=== PATIENT | female | born 1960 | race Caucasian/White ===

== ENCOUNTER 2022-01-25 13:42 | Inpatient (IN) | payer MEDICAID ==
[~2022-01-25] VITALS: Ht 160 cm; Wt 81.7 kg
[2022-01-25] MEDS ORDERED: IBUPROFEN 400MG TABLET PO ONE (17:00)
[2022-01-25] MEDS ORDERED: NITROGLYCERIN 0.4MG TABLET SL SL PRN ×2 (19:00→22:45)
[2022-01-25] MEDS ORDERED: AZITHROMYCIN 500MG/250ML 250 ML IV ONE (19:00)
[2022-01-25] MEDS ORDERED: SODIUM CHLORIDE 0.9% 1000ML BAG (SEPSIS BOLUS) IV ONE (19:00)
[2022-01-25] MEDS ORDERED: CEFTRIAXONE 1 G PREMIX 50 ML IV ONE (19:00)
[2022-01-25] MEDS ORDERED: ASPIRIN 81MG TABLET PO ONE (19:00)
[2022-01-25 19:52] LABS: BASOPHILS % 0.9 % (0.0-2.0); EOSINOPHILS % 3.2 % (0.0-5.0); HEMATOCRIT. 42.9 % (36.0-48.0); HEMOGLOBIN. 14.7 g/dL (12.0-16.0); LYMPHOCYTES % 38.6 % (20.0-50.0); MEAN CORPUSCULAR VOLUME 90.6 fL (81.0-99.0); MEAN PLATELET VOLUME 8.9 fl (7.4-10.4); MONOCYTES % 10.2 % (2.0-8.0); NEUTROPHILS % 47.1 % (40.0-76.0); PLATELET 315 x1000/uL (130-400); RED BLOOD CELL COUNT 4.73 mill/uL (4.2-5.4); RED CELL DISTRIBUTION WIDTH 12.8 % (11.6-14.6)
[2022-01-25 19:54] LABS: CLARITY URINE CLEAR (CLEAR); COLOR URINE YELLOW (YELLOW); KETONES URINE NEGATIVE (NEGATIVE); LEUKOCYTE ESTERASE URINE TRACE (NEGATIVE); NITRITE URINE NEGATIVE (NEGATIVE); OCCULT BLOOD URINE NEGATIVE (NEGATIVE); PROTEIN URINE TRACE (NEGATIVE); SPECIFIC GRAVITY URINE 1.013 (1.005-1.030); UROBILINOGEN URINE 0.2 E.U./dL (0.2-1.0)
[2022-01-25 20:08] LABS: CHLORIDE 100 mEq/L (98-107)
[2022-01-25] MEDS ORDERED: DOCUSATE SODIUM 100MG CAPSULE PO PRN (22:45)
[2022-01-25] MEDS ORDERED: ACETAMINOPHEN 325MG TABLET PO PRN ×2 (22:45)
[2022-01-25] MEDS ORDERED: ONDANSETRON HCL 4MG/2ML INJ IV PRN (22:45)
[2022-01-25] MEDS ORDERED: CLONIDINE 0.1MG TABLET PO PRN (22:45)
[2022-01-25] MEDS ORDERED: KETOROLAC 15MG/ML VIAL IV PRN (22:45)
[2022-01-25] MEDS ORDERED: IPRATROPIUM/ALBUTEROL 0.5-3(2.5)MG/3ML NEB NEB PRN (22:45)
[2022-01-25] MEDS ORDERED: ZOLPIDEM TARTRATE 5MG TABLET PO PRN (22:45)
[2022-01-25] MEDS ORDERED: MAGNESIUM/ALUMINUM HYDROXIDE/SIMETHICONE 30ML UDC PO PRN (22:45)
[2022-01-25 23:30] LABS: *AMPHETAMINES SCREEN URINE NEGATIVE (NEGATIVE); *BARBITURATES SCREEN URINE NEGATIVE (NEGATIVE); *BENZODIAZEPINES SCREEN URINE NEGATIVE (NEGATIVE); *COCAINE SCREEN URINE NEGATIVE (NEGATIVE); CANNABINOID URINE SCREEN NEGATIVE (NEGATIVE); METHADONE URINE SCREEN NEGATIVE (NEGATIVE); OPIATES URINE SCREEN NEGATIVE (NEGATIVE); PHENCYCLIDINE URINE SCREEN NEGATIVE (NEGATIVE)
[2022-01-26] VITALS (7 sets, daily range): BP systolic 100–145; BP diastolic 56–81
[2022-01-26] MEDS: GUAIFENESIN/DM 600MG/30MG ER TAB 12HR PO SCH ×3 (00:09→23:16)
[2022-01-26] MEDS: GUAIFENESIN 200MG/10ML SUGAR FREE UDC PO PRN ×2 (00:14→12:23)
[2022-01-26] MEDS ORDERED: INFLUENZA VACCINE 05/PF 0.5 ML SYRINGE IM ONE (01:15)
[2022-01-26 02:19] LABS: ETHANOL BLOOD < 10 mg/dL
[2022-01-26 02:31] LABS: HDL CHOLESTEROL 38 mg/dL (40-59); LDL CHOLESTEROL 102 mg/dL (5-100)
[2022-01-26 02:37] LABS: T4 FREE 0.98 ng/dL (0.76-1.46)
[2022-01-26 06:54] LABS: BASOPHILS % 1.1 % (0.0-2.0); EOSINOPHILS % 4.4 % (0.0-5.0); HEMATOCRIT. 38.9 % (36.0-48.0); HEMOGLOBIN. 13.6 g/dL (12.0-16.0); LYMPHOCYTES % 39.6 % (20.0-50.0); MEAN CORPUSCULAR HEMOGLOBIN 31.3 pg (28.0-32.0); MEAN CORPUSCULAR VOLUME 89.6 fL (81.0-99.0); MEAN PLATELET VOLUME 8.8 fl (7.4-10.4); MONOCYTES % 12.9 % (2.0-8.0); PLATELET 288 x1000/uL (130-400); RED BLOOD CELL COUNT 4.34 mill/uL (4.2-5.4); RED CELL DISTRIBUTION WIDTH 12.9 % (11.6-14.6)
[2022-01-26] MEDS: ASCORBIC ACID 500 MG TABLET PO SCH ×2 (08:09→21:15)
[2022-01-26] MEDS: ENOXAPARIN 40MG/0.4ML SYR SUBCUT SCH (08:09)
[2022-01-26] MEDS: CHOLECALCIFEROL (D3) 1000 UNIT TABLET PO SCH (08:09)
[2022-01-26] MEDS: ASPIRIN 325MG EC TABLET PO SCH (08:09)
[2022-01-26] MEDS: FAMOTIDINE 20MG TABLET PO SCH ×2 (08:09→21:15)
[2022-01-26] MEDS: ZINC SULFATE 220 MG ( 50 ) CAPSULE PO SCH (08:10)
[2022-01-26 08:29] LABS: CHLORIDE 102 mEq/L (98-107); CREATINE KINASE 106 IU/L (26-192); CREATINE KINASE MB FRACTION 1.1 ng/mL (0.5-3.6); PHOSPHORUS 3.7 mg/dL (2.5-4.9)
[2022-01-26] MEDS ORDERED: CEFTRIAXONE 1 G PREMIX 50 ML IV SCH (09:00)
[2022-01-26] MEDS: CEFTRIAXONE 1,000 MG in DEXTROSE 5% WATER 50 ML IV SCH (21:15)
[2022-01-26] MEDS ORDERED: AZITHROMYCIN 500 MG in DEXT 5% WATER 250 ML IV SCH (22:00)
[2022-01-27] VITALS: BP 129/57
[2022-01-27 04:00] VITALS: BP_SYST 136; BP_SYST 143; BP_DIAS 67; BP_DIAS 77
[2022-01-27 08:00] VITALS: BP 94/59
[2022-01-27] MEDS: GUAIFENESIN/DM 600MG/30MG ER TAB 12HR PO SCH ×2 (10:20→21:13)
[2022-01-27] MEDS: ASCORBIC ACID 500 MG TABLET PO SCH ×2 (10:20→21:11)
[2022-01-27] MEDS: ASPIRIN 325MG EC TABLET PO SCH (10:20)
[2022-01-27] MEDS: FAMOTIDINE 20MG TABLET PO SCH ×2 (10:21→21:11)
[2022-01-27] MEDS: CHOLECALCIFEROL (D3) 1000 UNIT TABLET PO SCH (10:21)
[2022-01-27] MEDS: ZINC SULFATE 220 MG ( 50 ) CAPSULE PO SCH (10:21)
[2022-01-27] MEDS: ENOXAPARIN 40MG/0.4ML SYR SUBCUT SCH (10:22)
[2022-01-27 12:00] VITALS: BP 115/67
[2022-01-27 16:00] VITALS: BP 141/65
[2022-01-27 20:00] VITALS: BP 133/66
[2022-01-27] MEDS ORDERED: AZITHROMYCIN 500 MG in DEXT 5% WATER 250 ML IV SCH (21:00)
[2022-01-27] MEDS: CEFTRIAXONE 1,000 MG in DEXTROSE 5% WATER 50 ML IV SCH (21:07)
[2022-01-28] VITALS: BP 122/77
[2022-01-28 04:00] VITALS: BP 118/78
[2022-01-28 08:00] VITALS: BP 115/66
[2022-01-28] MEDS ORDERED: LEVO750T68 MT (08:16)
[2022-01-28] MEDS: CHOLECALCIFEROL (D3) 1000 UNIT TABLET PO SCH (09:00)
[2022-01-28] MEDS: ENOXAPARIN 40MG/0.4ML SYR SUBCUT SCH (09:00)
[2022-01-28] MEDS: ZINC SULFATE 220 MG ( 50 ) CAPSULE PO SCH (09:00)
[2022-01-28] MEDS: ASCORBIC ACID 500 MG TABLET PO SCH (09:00)
[2022-01-28] MEDS: GUAIFENESIN/DM 600MG/30MG ER TAB 12HR PO SCH (09:00)
[2022-01-28] MEDS: ASPIRIN 325MG EC TABLET PO SCH (09:00)
[2022-01-28] MEDS: FAMOTIDINE 20MG TABLET PO SCH (09:00)
[2022-01-28 11:02] VITALS: BP 115/66
[2022-01-28 12:00] VITALS: BP 121/69
[2022-01-28] MEDS ORDERED: AZITHROMYCIN 500 MG TABLET PO SCH (21:00)
== END 2022-01-28 11:45 | disposition home or self-care (01) | DRG 139 ==
LOC: ER 14:47 → 8WST 21:31 → EDBEDREQ 21:40 → EDBEDREQTM 21:40 → ENRESERV 21:57
PROVIDERS: ADMIT Internal Medicine; ATTEND Internal Medicine
DX: J18.9 Pneumonia, unspecified organism (principal); E88.09 Other disorders of plasma-protein metabolism, not elsewhere classified; E66.9 Obesity, unspecified; Z20.822 Contact with and (suspected) exposure to COVID-19; Z68.31 Body mass index [BMI] 31.0-31.9, adult; R51.9 Headache, unspecified
CPT/HCPCS: 36415; 71046; 80053; 80061; 80305; 80320; 81003; 82550; 82553; 82607; 83036; 83605; 83735; 83880; 84100; 84145; 84439; 84443; 84484; 85025; 87420; 87426; 87804; 90686; 93005; 93306; 93970; 99285; J0456; J0696; J1650; J7060; G0480